=== PATIENT | male | born 1965 | race Caucasian/White ===

== ENCOUNTER 2020-12-26 07:01 | Day surgery (SDC) | payer BC ==
[2020-12-26] MEDS ORDERED: Midazolam 1 MG/ML 2 ML SDV ONE (07:19)
[2020-12-26] MEDS ORDERED: fentaNYL 100 MCG/2 ML SDV ONE (07:19)
[2020-12-26] MEDS ORDERED: Propofol 200 MG/20 ML SDV ONE (07:19)
[2020-12-26] MEDS ORDERED: Sodium Chloride 0.9% 1,000 ML IV SCH (07:30)
--- NOTE | 2020-12-26 14:19 | OR ---
DATE OF PROCEDURE: 12/26/2020 SURGEON: Corona Kelly MD PROCEDURE PERFORMED: Colonoscopy. FINDINGS: Descending colon polyp, approximately 5 mm, completely removed using cold biopsy forceps. COMPLICATIONS: None. LINUX ADMINISTRATOR: None. ANESTHESIA: MAC. PREOPERATIVE DIAGNOSIS: Screening colonoscopy. POSTOPERATIVE DIAGNOSIS: Screening colonoscopy. RISKS: Risks, benefits, alternatives, and limitations including, but not limited to infection, bleeding, perforation, false positives, and false negatives were explained to the patient who wished to proceed. PROCEDURE IN DETAIL: The patient was placed in the left lateral decubitus position. Digital rectal exam was performed without abnormality. The scope was introduced and advanced atraumatically to the ileocecal valve. A photo was taken of the appendiceal orifice. The scope was brought back through the ascending, transverse, and descending colon and retroflexed. No evidence of old or new blood. The aforementioned polyp was identified and completely removed. No abnormalities on retroflex. Greater than 8 minutes spent removing the scope. Prep was acceptable. Approximately 90% of the luminal surface could be seen. Corona Kelly MD /[id number]
== END 2020-12-26 10:00 | disposition home or self-care (01) ==
LOC: JP.SDS 07:01
PROVIDERS: ATTEND Surgery
DX: Z12.11 Encounter for screening for malignant neoplasm of colon (principal); D12.4 Benign neoplasm of descending colon; E78.5 Hyperlipidemia, unspecified; I10 Essential (primary) hypertension; Z88.0 Allergy status to penicillin; Z88.8 Allergy status to other drugs, medicaments and biological substances
CPT/HCPCS: 45380; 88305; J2250; J2704; J3010; J7030